=== PATIENT | female | born 1975 ===

== ENCOUNTER 2017-04-29 10:57 | Outpatient (CLI) | payer BC ==
[2017-04-29 16:10] LABS: #Basophils 0.1 thou/uL (0.0-0.2); #Eosinphils 0.3 thou/uL (0.0-0.7); #Monocytes 0.6 thou/uL (0.11-0.59); #Neutrophils 4.5 thou/uL (1.40-6.50); %Basophils 1.8 % (0.0-1.0); %Eosinophils 4.1 % (0.0-10.0); %Lymphocytes 26.7 % (21.0-51.0); %Monocytes 7.7 % (0.0-10.0); %Neutrophils 59.8 % (42.0-75.0); Hemoglobin 13.8 g/dL (12.0-16.0); Mean Corpuscular HGB CONC 32.5 g/dL (32.0-36.0); Mean Corpuscular Hemoglobin 31.2 pg (27.0-31.0); Mean Corpuscular Volume 96.2 fl (81.0-99.0); Mean Platelet Volume 9.3 fL (7.4-10.4); Platelet Count 225 thou/uL (130-400); RBC Distribution Width 12.1 % (11.5-14.5); Red Blood Cell (RBC) Count 4.42 mill/uL (4.20-5.40); White Blood Cell (WBC) Count 7.6 thou/uL (4.8-10.8)
[2017-04-29 16:27] LABS: ALT (SGPT) 20 U/L (8-55); AST (SGOT) 15 U/L (5-34); Alkaline Phosphatase 57 U/L (40-150); Anion Gap 12 mmol/L (10-20); BUN (Urea Nitrogen) 19 mg/dL (7.0-18.7); Bilirubin, Total 0.3 mg/dL (0.2-1.2); Calc. Creatinine Clearance 0 mL/min (70-130); Calcium 9.4 mg/dL (7.8-10.44); Carbon Dioxide 24 mmol/L (22-29); Chloride 106 mmol/L (98-107); Estimated GFR-MDRD 75; Globulin 2.9 g/dL (2.4-3.5); Glucose 104 mg/dL (70-105); Potassium 4.8 mmol/L (3.5-5.1); Protein, Total 6.9 g/dL (6.0-8.3); Sodium 137 mmol/L (136-145)
[2017-05-01 22:24] LABS: HPV High Risk Type 16 Negative (Negative); HPV High Risk Type 18 Negative (Negative); HPV Other High Risk Types Negative (Negative)
== END 2017-04-29 10:58 | disposition home or self-care (01) ==
LOC: LABLEX 10:57
PROVIDERS: ATTEND Nurse Practitioner
DX: Z01.419 Encounter for gynecological examination (general) (routine) without abnormal findings (principal); F31.10 Bipolar disorder, current episode manic without psychotic features, unspecified; Z79.899 Other long term (current) drug therapy
CPT/HCPCS: 80053; 84443; 85025; 87624; 88142; G0123